=== PATIENT | female | born 1965 | race Caucasian/White ===

== ENCOUNTER 2018-08-04 14:40 | Outpatient (CLI) | payer OTHER | END 2018-08-04 14:41 | disposition home or self-care (01) | LOC: BICMAMMO 14:40 | PROVIDERS: ATTEND Student in an Organized Health Care Education/Training Program | DX: Z12.31 Encounter for screening mammogram for malignant neoplasm of breast (principal) | CPT/HCPCS: 77063; 77067 ==

== ENCOUNTER 2018-09-26 08:11 | Emergency (ER) | payer OTHER ==
--- NOTE | 2018-09-26 09:15 | RAD ---
LUMBAR SPINE 3 VIEWS: Date: 09/26/18 HISTORY: Low back pain. FINDINGS/IMPRESSION: No fracture, subluxation, or bony destruction is identified. POS: [facility]
[2018-09-26] MEDS ORDERED: Ketorolac Tromethamine 60 MG/2 ML VIAL ONE (09:34)
[2018-09-26] MEDS ORDERED: Diazepam 5 MG TAB ONE (10:19)
--- NOTE | 2018-09-28 07:49 | RAD ---
LUMBAR SPINE 3 VIEWS: Date: 09/26/18 COMPARISON: None. HISTORY: Back pain. FINDINGS: Clips in right upper quadrant suggest prior cholecystectomy. Five lumbar-type vertebral bodies are pr esent with intact pedicles on frontal imaging. Lateral imaging demonstrates normal vertebral body hei ght and alignment. Mild facet hypertrophy at L3-4, L4-5, and L5-S1. No acute osseous abnormality. IMPRESSION: No acute findings. POS: [facility]
== END 2018-09-26 11:41 | disposition home or self-care (01) ==
LOC: ERS 08:11
DX: M62.830 Muscle spasm of back (principal); M54.5 Low back pain
CPT/HCPCS: 72100; 96372; J1885